=== PATIENT | male | born 1965 | race Caucasian/White ===

== ENCOUNTER 2017-05-24 16:49 | Day surgery (SDC) | payer OTHER ==
[~2017-05-24 16:49] MED LIST: Dexamethasone 20 MG/5 ML VIAL ONE; Lidocaine 1% PF 5 ML VIAL ONE; Ondansetron HCl/PF 4 MG/2 ML Vial ONE; PROPOFOL 200 MG/20 ML VIAL ONE; Succinylcholine Chloride 20 MG/ML 10 ml SYRINGE FS ONE; ePHEDrine/0.9% NaCl/PF SYRINGE 50 mg/10 ml ONE
[2017-05-24] MEDS ORDERED: Lidocaine 1% PF 5 ML VIAL ONE (17:42)
--- NOTE | 2017-05-24 17:49 | RAD ---
RIGHT HAND THREE VIEWS: History: Injury. Comparison: None. FINDINGS: There is a traumatic open laceration and fracture of the distal phalanx of the thumb. There are multi ple fracture sites of the proximal metastasis and distal tuft. IMPRESSION: Open traumatic laceration and fracture at multiple sites of the distal phalanx of the thumb with an a pproximately 2-3 mm gap between the proximal metaphysis and diaphysis. There is also a gap between th e distal tuft and the distal diaphysis approximately 3 mm. POS: VENTURA
[2017-05-24] MEDS ORDERED: Clindamycin/D5W 900 mg/50 ml Premix Bag ONE (18:38)
[2017-05-24] MEDS ORDERED: Adacel (T-DAP) 0.5 ML VIAL ONE (18:51)
[2017-05-24] MEDS ORDERED: Midazolam HCl 2 mg/2 ml Vial ONE (19:36)
[2017-05-24] MEDS ORDERED: Fentanyl 100 MCG/2 ML VIAL ONE ×3 (19:36→21:47)
[2017-05-24 19:56] LABS: Amphetamine Not Detected (NotDetected); Barbiturates Screen Not Detected (NotDetected); Benzodiazepine Screen Not Detected (NotDetected); Cocaine Metabolite Screen Not Detected (NotDetected); Medtox Control Line Valid? VALID (VALID); Medtox Reader # READER 1; Methadone Not Detected (NotDetected); Methamphetamine Not Detected (NotDetected); Opiate Screen Not Detected (NotDetected); Oxycodone Screen Not Detected (NotDetected); Phencyclidine (PCP) Not Detected (NotDetected); THC/Cannabinoid Screen Not Detected (NotDetected); Tricyclic Screen Not Detected (NotDetected)
--- NOTE | 2017-05-24 21:06 | RAD ---
RIGHT FINGER TWO VIEWS: History: Pinning of thumb. FINDINGS: Satisfactory appearance of the thumb post pin placement. IMPRESSION: Satisfactory appearance post pin placement. POS: MAGO
--- NOTE | 2017-05-25 05:50 | HP ---
CHIEF COMPLAINT: Right thumb injury, mechanical injury. HISTORY OF PRESENT ILLNESS: Mr. Garnica is a 51-year-old male who works at [employer]. He had a n industrial accident in which his finger was caught up in one of the machines and crushed on his rig ht thumb. The patient is right hand dominant. Currently, rates his pain as 0/10. He has a digital block. His pain was 2/10 when he came in. He states his finger was numb and was very painful and th en kind of started to become numb to touch. The patient is resting comfortably in bed. PAST MEDICAL HISTORY: None. PAST SURGICAL HISTORY: Hernia repair. ALLERGIES: No known drug allergies. MEDICATIONS: None. SOCIAL HISTORY: Occasional alcohol. No tobacco or drug use. The patient works as a sims. REVIEW OF SYSTEMS: Noncontributory, 10-point exam except for right thumb. PHYSICAL EXAMINATION: VITAL SIGNS: Blood pressure 138/61, 85 heart rate, sats are 100% on room air and temperature 98.2. The pain is 0/10. GENERAL: Alert and oriented male in no acute distress, resting comfortably in bed. EXTREMITIES: Right upper extremity, the patient has a laceration extending from the pulp of his P2 s egment around dorsally through to the nail bed almost completely circumferential. The patient is abl e to flex and extend weakly at his IP joint. The patient has sluggish cap refill. Sensation is diff icult to ascertain given the patient's current digital block. The patient has no gross debris noted. X-RAY FINDINGS: X-rays show a P2 segment fracture with pulp injury as well as a transverse fracture at the base of his P2. IMPRESSION: Industrial crush injury with nail bed injury P2 open fracture with almost circumferentia l laceration, questionable arterial and venous circulation. ASSESSMENT AND PLAN: I discussed with the patient performing an incision and drainage with potential nail bed laceration repair, closure of the wound and pinning of his pinky. I discussed that if the patient has received vancomycin and clindamycin per the ER, the patient is on-call to the operating r oom. I discussed to him the risks and benefits of surgery to include pain, scar, bleeding, infection , decreased sensation, damage to nerves, arteries and tendons, loss of future need for amputation, lo ss of finger, small risk of loss of life or limb. I discussed that the patient's viability of this t humb will be dependent upon the collateral flow as well as motorsensory exam, although I am unable to perform it currently because of digital block. The patient understands the risks and benefits of castellanos rgery. He understands the plan of course. 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 He understands our plan of course will be to wash him out, close up, pin, and place him in a soft tissue dressing with a cute followup and sent him home with oral antibiotics and pain medications.
--- NOTE | 2017-05-25 06:32 | OP ---
DATE OF PROCEDURE: 05/24/2017. PREOPERATIVE DIAGNOSIS: Right thumb crush injury from mechanical instrument with an open P2 fracture nail bed injury with intact flexion and extension on exam, sluggish cap refill. POSTOPERATIVE DIAGNOSES: 1. Right thumb P2 crush injury. 2. Right nail bed injury. 3. Open P2 fracture. 4. 3 cm of traumatic laceration. PROCEDURES PERFORMED: 1. I&D open fracture. 2. Percutaneous pinning of P2 fracture. 3. Nail bed repair. 4. Repair of 3 cm laceration. 5. Thumb spica. STAFF: Negrito Hamm MD ANESTHESIA: Shantanu Victoria. The patient received an LMA. ESTIMATED BLOOD LOSS: 10 mL. TOURNIQUET TIME: 21 minutes. IMPLANTS: 4-5 K-wire with a Jurgan ball. ANTIBIOTICS: The patient received vancomycin and clindamycin preoperatively as well as tetanus. COMPLICATIONS: None. HISTORY OF PRESENT ILLNESS: Mr. Garnica is a 51-year-old male who presented with a crush injury to h is right thumb while at work. The patient was consulted by ER for evaluation. He was noted to have a laceration that started on the radial aspect of his thumb in a zig-zag pattern, came across his earl l bed and over to the ulnar aspect of his thumb dorsally. It was approximately 5 cm in total length. The patient had fracture of the P2 tuft as well as right at the base. He was able to flex and exte nd his finger. The patient had difficult sensory exam, because he had digital block in place on eval uation. The patient did have sluggish cap refill. I discussed with the patient the risks and benefi ts of an I&D washout, possible nail bed repair, closure of laceration, pinning of the finger. I disc ussed the risks and benefits of surgery including pain, scar, bleeding, infection, damage to vital st ructures, decreased range of motion or strength, decreased sensation, vascular issues, need for furth er surgical procedure to include amputation. The patient understood the risks and benefits and elect ed to proceed. DESCRIPTION OF PROCEDURE: Time-out was performed. The patient's right upper extremity is the operat leah site based on sight, consents, markings. After completion of timeout, the patient's right upper extremity was prepped and draped with Betadine. I began washing the patient's thumb to remove any of the gross hematoma to expose the fracture site. I saw the base of the nail bed. I curetted out the patient's P2 base, both proximal and distal segments with a curette, washed. I did not see any spencer s debris. I washed the wound with approximately 2-1/2 liters of fluid. I then took a Doppler and th en found a pulse on the patient's ulnar aspect of his thumb distal to the incision. I had difficulty finding it radially. Although his hand was cool, there was still some cap refill. After completion of this, I debrided the bone, took a small portion of the skin. I was able to expose and saw what a ppeared to be the insertion of the extensor tendon. I did not want to undermine any more to further expose it and devascularize the tissue right near the nail bed. I then took a 0.045 K-wire, passed i t to the center of the shaft out to the distal tip of the finger and used that to then reduce the fin trent and nail bed into place and pinned the P2 fragment from what was in the shaft. I took AP and lat eral radiographs. I liked it, but I was concerned about so little space for control of the patient's P2 segment. Therefore, I elected to pass the pin into the P1 segment to help stabilize it. I compl eted my washout. I passed the pin under tourniquet. I completed my washout and started closing. I closed the medial and lateral wounds with 4-0 nylon for nail bed repair. I passed the suture through the nail and nail bed and reapproximated both with 2 simple sutures of 4-0 in the nail bed. I then washed the wound, let the tourniquet down after about 22 minutes, again dopplered and found a faint p ulse on the ulnar aspect of the thumb, but there was good cap refill. We then placed the patient in a thumb spica splint after we had cleaned up the hand. The patient will be sent home with p.o. ciprofloxacin and p.o. clindamycin. He will be sent home wit h p.o. pain meds, elevation, and ice. The patient will have the pin remain in for about 3 weeks, at which time, will be removed and begin range of motion of his thumb. The patient will follow up in a week for splint exchange as well as for wound check. The patient's outlook is guarded. We will asse ss. He appears to have good cap refill and I feel this likely will not lead to further amputation. I am concerned about the patient's neuro status. I do think he will be able to flex and extend the t humb and likely maintain his thumb. Hopefully, he will have apposition.
== END 2017-05-24 23:06 | disposition home or self-care (01) ==
LOC: ERS 16:49 → SDC/OP 20:47
PROVIDERS: ATTEND Orthopaedic Surgery Hand Surgery
PROC: 0HQFXZZ Repair Right Hand Skin, External Approach (ICD-10-PCS; principal; 2017-05-24)
PROC: 0PSR34Z Reposition Right Thumb Phalanx with Internal Fixation Device, Percutaneous Approach (ICD-10-PCS; principal; 2017-05-24)
PROC: 0PBR0ZZ Excision of Right Thumb Phalanx, Open Approach (ICD-10-PCS; principal; 2017-05-24)
PROC: 0HQQXZZ Repair Finger Nail, External Approach (ICD-10-PCS; principal; 2017-05-24)
DX: S67.01XA Crushing injury of right thumb, initial encounter (principal); S62.511B Displaced fracture of proximal phalanx of right thumb, initial encounter for open fracture; S61.111A Laceration without foreign body of right thumb with damage to nail, initial encounter; W31.89XA Contact with other specified machinery, initial encounter; Y99.0 Civilian activity done for income or pay; Z98.890 Other specified postprocedural states
CPT/HCPCS: 76000; 80306; 80307; 90471; 90715; 96365; 96368; J1100; J2001; J2250; J2405; J2704; J3010; J3370; J3490